=== PATIENT | male | born 1990 | race Caucasian/White ===

== ENCOUNTER → 2024-04-15 | Outpatient (CLI) | payer OTHER ==
--- NOTE | 2024-04-15 15:12 | US ---
EXAMINATION TYPE: US scrotum with doppler. DATE OF EXAM: 04/15/2024 COMPARISON: NONE CLINICAL INDICATION: Male, 34 years old with history of N50.819 TESTICULAR PAIN; Pressure on right te sticle x few months with swelling; denies injury; Hx cyst on right side with removal TECHNIQUE: Grayscale, color Doppler and spectral Doppler imaging of the scrotum. FINDINGS: EXAM MEASUREMENTS: TESTICLES: Right Testicle: 3.7 x 2.1 x 2.9 cm Left Testicle: 3.9 x 2.1 x 2.8 cm EPIDIDYMIS HEAD: Right Epididymis: 0.6 x 0.7 x 1.1 cm Left Epididymis: 1.1 x 0.9 x 0.7 cm Doppler performed to assess for testicular vascularity; good bilateral color flow and spectral wavefo ana are seen. There is no evidence of testicular torsion. Presence of hydroceles: No Presence of varicoceles: No IMPRESSION: 1. No cysts identified. No evidence for intratesticular mass. 2. Appropriate arterial and venous spectral waveforms to the testes. [facility], , 04/15/2024 3:09 PM
== END | disposition home or self-care (01) ==
LOC: RADUSWWP 14:43
PROVIDERS: ATTEND Family Medicine
DX: N50.811 Right testicular pain (principal)
CPT/HCPCS: 76870; 93975